=== PATIENT | female | born 1985 | race Two or more races ===

== ENCOUNTER 2020-07-14 10:16 | Emergency (ER) | payer OTHER ==
[~2020-07-14] VITALS: Ht 162.6 cm; Wt 63.5 kg
[2020-07-14 10:24] VITALS: BP 135/89
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
--- NOTE | 2020-07-14 10:45 | NUR ---
PT IN ROOM AWAKE AND ALERT, DEMONSTRATING INAPPROPRIATE BEHAVIOR, VULGAR LANGUAGE, VIOLENT MANNERISMS. SAFETY PRECAUTIONS, 1:1 OBSERVATIONS, 4-POINT RESTRAINTS REMAIN IN PLACE. RADIAL PULSES PRESENT BILAT, PEDAL PULSES PRESENT BILAT, PT DENIES TINGLING/NUMBESS, <3 CAP REFILL NOTED. WILL COTINUE TO ASSESS.
[2020-07-14] MEDS ORDERED: ZIPRASIDONE MESYLATE 20 MG/ML VIAL IM ONE (11:10)
[2020-07-14] MEDS ORDERED: WATER STERILE 10 ML MC ONE (11:19)
--- NOTE | 2020-07-14 12:01 | NUR ---
Note undone in EDM - 07/14/20 at 1222 by [facility] PT IN ROOM EYES CLOSED, VISIBLE ANIA RISE AND FALL. SAFETY PRECAUTIONS, 1:1 OBSERVATIONS, 4-POINT RESTRAINTS REMAIN IN PLACE. RADIAL PULSES PRESENT BILAT, PEDAL PULSES PRESENT BILAT, PT DENIES TINGLING/NUMBESS, <3 CAP REFILL NOTED. WILL COTINUE TO ASSESS.
--- NOTE | 2020-07-14 12:01 | NUR ---
PT IN ROOM EYES CLOSED, VISIBLE ANIA RISE AND FALL. SAFETY PRECAUTIONS, 1:1 OBSERVATIONS, 4-POINT RESTRAINTS REMAIN IN PLACE. RADIAL PULSES PRESENT BILAT, PEDAL PULSES PRESENT BILAT, <3 CAP REFILL NOTED. WILL COTINUE TO ASSESS.
--- NOTE | 2020-07-14 12:01 | NUR ---
PT SLEEPING, VISIBLE CHEST RISE AND FALL. 4-POINT RESTRAINTS D/C. 1:1 OBSERVATIONS AND SAFETY PRECAUTIONS REMAIN IN PLACE. WILL CONTINUE TO MONITOR.
--- NOTE | 2020-07-14 12:02 | NUR ---
LAB AT BEDSIDE
--- NOTE | 2020-07-14 12:10 | NUR ---
TAMIKO COVID SWAB OBTAINED AND GIVEN TO MALATHI FROM LAB
--- NOTE | 2020-07-14 12:15 | NUR ---
PT IN ROOM EYES CLOSED, VISIBLE CHEST RISE AND FALL. SAFETY PRECAUTIONS, 1:1 OBSERVATIONS. PT TAKEN OFF RESTRAINTS. WILL COTINUE TO ASSESS.
--- NOTE | 2020-07-14 12:15 | NUR ---
Note inez in EDM - 07/14/20 at 1344 by [facility] PT IN ROOM EYES CLOSED, VISIBLE ANIA RISE AND FALL. SAFETY PRECAUTIONS, 1:1 OBSERVATIONS, 4-POINT RESTRAINTS REMAIN IN PLACE. RADIAL PULSES PRESENT BILAT, PEDAL PULSES PRESENT BILAT, <3 CAP REFILL NOTED. WILL COTINUE TO ASSESS.
[2020-07-14 12:28] LABS: BASOPHILS % (AUTO) 0.7 % (0.0-2.0); EOSINOPHILS % (AUTO) 0.4 % (0.0-4.0); HEMATOCRIT 25.6 % (36-48); LYMPHOCYTES # (AUTO) 1.4 K/uL (2.5-16.5); LYMPHOCYTES % (AUTO) 21.8 % (20.5-51.1); MEAN CORPUSCULAR HEMOGLOBIN 21 pg (27-31); MEAN CORPUSCULAR HGB CONC 31 g/dL (33-37); MEAN CORPUSCULAR VOLUME 67.8 fL (80-94); MONOCYTES # (AUTO) 0.9 K/uL (0.8-1.0); NEUTROPHILS # (AUTO) 4.2 K/uL (1.8-7.7); NEUTROPHILS % (AUTO) 64.1 % (42.2-75.2); PLATELET COUNT (AUTO) 433 K/uL (140-450); RED BLOOD CELL COUNT(AUTO) 3.77 MIL/uL (4.20-5.40); RED CELL DISTRIBUTION WIDTH 17.4 % (11.6-13.7); WHITE BLOOD COUNT (AUTO) 6.6 K/uL (4.8-10.8)
--- NOTE | 2020-07-14 12:30 | NUR ---
NOVEL CORONAVIRUS SWAB OBTAINED AN DTAKEN TO LAB
--- NOTE | 2020-07-14 12:31 | NUR ---
Note inez in EDM - 07/14/20 at 1343 by [facility] PT IN ROOM EYES CLOSED, VISIBLE ANIA RISE AND FALL. SAFETY PRECAUTIONS, 1:1 OBSERVATIONS, 4-POINT RESTRAINTS REMAIN IN PLACE. RADIAL PULSES PRESENT BILAT, PEDAL PULSES PRESENT BILAT, <3 CAP REFILL NOTED. WILL COTINUE TO ASSESS.
[2020-07-14 12:40] LABS: ANION GAP 13.5 (8-16); CARBON DIOXIDE 24.8 mmol/L (21-32); CHLORIDE 104 mmol/L (98-107); CREATININE 0.9 mg/dL (0.6-1.3); GFR ARICAN-AMERICAN 93 mL/min (>90); GLUCOSE 99 mg/dL (74-106); POTASSIUM 3.3 mmol/L (3.5-5.1); SODIUM SERUM 139 mmol/L (136-145); UREA NITROGEN, BLOOD 12 mg/dL (7-18)
--- NOTE | 2020-07-14 12:45 | NUR ---
Note inez in EDM - 07/14/20 at 1343 by [facility] PT IN ROOM EYES CLOSED, VISIBLE ANIA RISE AND FALL. SAFETY PRECAUTIONS, 1:1 OBSERVATIONS, 4-POINT RESTRAINTS REMAIN IN PLACE. RADIAL PULSES PRESENT BILAT, PEDAL PULSES PRESENT BILAT, <3 CAP REFILL NOTED. WILL COTINUE TO ASSESS.
[2020-07-14 12:46] LABS: ALBUMIN 3.3 g/dL (3.4-5.0); ASPARTATE AMINOTRANSFERASE 22 U/L (15-37); TOTAL BILIRUBIN 0.7 mg/dL (0.0-1.0)
[2020-07-14 12:52] LABS: SALICYLATE < 2.8 mg/dL (2.8-20.0)
[2020-07-14 12:53] LABS: ACETAMINOPHEN < 0.5 ug/ml (10-30)
--- NOTE | 2020-07-14 13:15 | NUR ---
Note inez in EDM - 07/14/20 at 1343 by [facility] PT IN ROOM EYES CLOSED, VISIBLE ANIA RISE AND FALL. SAFETY PRECAUTIONS, 1:1 OBSERVATIONS, 4-POINT RESTRAINTS REMAIN IN PLACE. RADIAL PULSES PRESENT BILAT, PEDAL PULSES PRESENT BILAT, <3 CAP REFILL NOTED. WILL COTINUE TO ASSESS.
--- NOTE | 2020-07-14 16:00 | NUR ---
Bilateral lower leg restraints removed.
[2020-07-14 16:02] LABS: APPEARANCE,URINE SL CLOUDY (CLEAR); BILIRUBIN,URINE 1+ (NEGATIVE); BLOOD, URINE NEGATIVE (NEGATIVE); COLOR,URINE YELLOW (YELLOW); LEUKOCYTE ESTERASE ,URINE TRACE (NEGATIVE); NITRITE, URINE NEGATIVE (NEGATIVE); UGLUCOSE NEGATIVE (NEGATIVE)
[2020-07-14 16:13] LABS: BARBITURATE, URINE NEGATIVE ng/ml (NEG <=200); BENZODIAZEPINE, URINE NEGATIVE ng/mL (NEG <=200)
[2020-07-14 16:14] LABS: CANNABINOID, URINE POSITIVE ng/mL (NEG <=50); COCAINE, URINE NEGATIVE ng/mL (NEG <=300); OPIATE, URINE NEGATIVE ng/mL (NEG <=2000); PHENCYCLIDINE SCREEN,URINE NEGATIVE ng/mL (NEG <=25)
--- NOTE | 2020-07-14 16:26 | NUR ---
All restraints removed and pt continues to be quiet and cooperative.
[2020-07-14 16:37] LABS: RBC,URINE 0-5 /HPF (0-5)
[2020-07-14 16:38] LABS: WBC,URINE 16-25 (MOD) /HPF (0-5)
--- NOTE | 2020-07-14 17:39 | NUR ---
MD MERLIN (PSYCH) AT BEDSIDE
--- NOTE | 2020-07-14 17:56 | NUR ---
PER DR. NEUMANN, PT IS MEDICALLY CLEARED. OKAY TO BEGIN LOOKING FOR BED/PLACEMENT.
[2020-07-14] MEDS ORDERED: cephALEXin 500 MG CAP PO ONE (18:00)
--- NOTE | 2020-07-14 18:00 | NUR ---
Pt provided with dinner tray.
--- NOTE | 2020-07-14 18:18 | NUR ---
Packet received for placement
--- NOTE | 2020-07-14 18:27 | NUR ---
Packet fax to the following facilities [facility]
--- NOTE | 2020-07-14 19:17 | NUR ---
RECEIVED REPORT FROM FELIZ COTA FOR SHIFT CHANGE.
--- NOTE | 2020-07-14 19:21 | NUR ---
Pt report given to FELIZ MCKEON. Transfer of care at this time.
--- NOTE | 2020-07-14 21:20 | NUR ---
Patient appears to be resting comfortably in bed. VSS. Respirations even and unlabored.
--- NOTE | 2020-07-14 23:20 | NUR ---
Patient appears to be resting comfortably in bed. VSS. Respirations even and unlabored.
--- NOTE | 2020-07-15 00:51 | NUR ---
Received call from [facility]. Packet on file. Will review in the AM
--- NOTE | 2020-07-15 01:20 | NUR ---
Patient appears to be resting comfortably in bed. VSS. Respirations even and unlabored.
--- NOTE | 2020-07-15 03:20 | NUR ---
Patient appears to be resting comfortably in bed. VSS. Respirations even and unlabored.
--- NOTE | 2020-07-15 05:20 | NUR ---
Patient appears to be resting comfortably in bed. Respirations even and unlabored.
--- NOTE | 2020-07-15 05:30 | NUR ---
Patient appears to be resting comfortably in bed. Vital Signs within normal limits. Respirations even and unlabored.
--- NOTE | 2020-07-15 05:38 | NUR ---
There are still no bed availability at any of the designated facilities
--- NOTE | 2020-07-15 07:03 | NUR ---
Patient appears to be resting comfortably in bed. Vital Signs within normal limits. Respirations even and unlabored.
--- NOTE | 2020-07-15 07:10 | NUR ---
REPORT GIVEN TO FELIZ TORREZ FOR CHANGE OF SHIFT.
--- NOTE | 2020-07-15 07:11 | NUR ---
REPORT RECEIVED FROM FELIZ MCKEON. TRANSFER OF CARE AT THIS TIME.
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
--- NOTE | 2020-07-15 07:11 | NUR ---
Ifeanyi wiley in ED - 07/15/20 at 0712 by [facility] REPORT RECEIVED FROM FELIZ MCKEON. TRANSFER OF CARE AT THIS TIME.
--- NOTE | 2020-07-15 07:37 | NUR ---
PT AMBULATED TO WITH BEDSIDE SITTER, PT TOLD NOT TO LOCK THE DOOR BY SITTER. SITTER WAS ON THE OUTSIDE OF DOOR HOLDING DOOR OPEN. PT USED FORCE TO PULL DOOR CLOSED FROM THE INSIDE AND LOCKED DOOR. SECURITY IMMEDIATELY CALLED TO UNLOCK DOOR. SECUIRTY UNABLE TO OPEN DOOR, STATES "NO MERRITT UNLOCKS THIS DOOR." SITTER AND SECURITY STANDING OUTSIDE BATHROOM DOOR TRYING TO GET PT TO COME OUT.
--- NOTE | 2020-07-15 07:48 | NUR ---
RANDY SUCCESSFULLY UNLCOKED RR DOOR. PT IN BED. WITH SITTER AT BEDSIDE. PT MUMBLING TO HERSELF.
--- NOTE | 2020-07-15 08:10 | NUR ---
PT EATING BREAKFAST AT BEDSIDE.
--- NOTE | 2020-07-15 08:51 | NUR ---
PT CONTINUES TO MUMBLE TO HERSELF. AT BEDSIDE IN LOWEST POSITION X1 RAIL BEING MONITORED.
--- NOTE | 2020-07-15 09:12 | NUR ---
PT GOING WITH SITTER VIA WHEELCHAIR TO MED/SURG SHOWER PER ERMD ORDER.
--- NOTE | 2020-07-15 09:12 | NUR ---
Pt taken down to [facility] via w/c for a shower. Pt is calm and cooperative at this time. Pt accompanied by her VICTORIAN LITERATURE PROFESSOR sitter.
--- NOTE | 2020-07-15 10:10 | NUR ---
PT RETURNED FROM SHOWER WITH SITTER. BED LOCKED AND IN LOWEST POSITION. SIDE RAILS X1.
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
[2020-07-15] MEDS ORDERED: ZIPRASIDONE MESYLATE 20 MG/ML VIAL IM ONE (11:45)
--- NOTE | 2020-07-15 11:48 | NUR ---
PT GIVEN MEAL TRAY PRIOR TO [employer] [employer]
[2020-07-15] MEDS ORDERED: WATER STERILE 10 ML MC ONE (11:49)
--- NOTE | 2020-07-15 12:00 | NUR ---
SECURITY CALLED TO ER PRIOR TO ADMINISTRATION OF MEDICATIONS.
--- NOTE | 2020-07-15 12:03 | NUR ---
PT CONSENTED TO [facility].
--- NOTE | 2020-07-15 12:07 | NUR ---
PT CONTINUES TO BE VERBALLY AGRESSIVE AND THREATENING ER STAFF, SECURITY AND CHARGE NURSE AT [facility] ATTEMPTING TO DEESCALATE PT AT THIS TIME. SITTER AT BEDSIDE.
--- NOTE | 2020-07-15 12:07 | NUR ---
Note inez in ED - 07/15/20 at 1211 by [email or web address] PT CONTINUES TO BE VERBALLY AGRESSIVE AND THREATENING ER STAFF, SECURITY AND CHARGE NURSE AT [facility] ATTEMPTING TO DEESCALATING PT AT THIS TIME. SITTER AT BEDSIDE.
--- NOTE | 2020-07-15 12:15 | NUR ---
PT QUIET AND LYING DOWN WITH EYES CLOSED. PT NO LONGER AGGRESSIVE OR VERBALLY YELLING AT ANYONE AT THIS TIME. SITTER AT BEDSIDE. WARM BLANKET PROVIDED.
--- NOTE | 2020-07-15 13:59 | NUR ---
PT QUIET AND LYING DOWN WITH EYES CLOSED. PT NO LONGER AGGRESSIVE OR VERBALLY YELLING AT ANYONE AT THIS TIME. SITTER AT BEDSIDE. WARM BLANKET PROVIDED. EQUAL CHEST RISE AND FALL BREATH SOUNDS HEARD.
--- NOTE | 2020-07-15 17:17 | NUR ---
PT QUIET AND LYING DOWN WITH EYES CLOSED. PT NO LONGER AGGRESSIVE OR VERBALLY YELLING AT ANYONE AT THIS TIME. SITTER AT BEDSIDE. WARM BLANKET PROVIDED. EQUAL CHEST RISE AND FALL BREATH SOUNDS HEARD. PT IN LOWEST LOCKED BED X1 RAIL.
--- NOTE | 2020-07-15 17:51 | NUR ---
Patient up, ambulatory to restroom assisted by sitter.
--- NOTE | 2020-07-15 18:12 | NUR ---
Patient up and awake, eating dinner tray quietly.
--- NOTE | 2020-07-15 21:51 | NUR ---
Called the following facilities [facility]- no beds [facility] s/w [facility]-no beds-all full [facility]-no answer [facility] s/w Genny-packet fax for review [facility] Jennifer-no beds [facility] Oralia-packet fax for review
--- NOTE | 2020-07-15 22:00 | NUR ---
Patient appears to be resting comfortably in bed. Vital Signs within normal limits. Respirations even and unlabored. PT EATING SANDWICH, PUDDING AND JUICE. PT AMBULATED TO BATHROOM. PT IS NOW RESTING IN BED CALMLY.
--- NOTE | 2020-07-15 23:13 | NUR ---
Ifeanyi wiley in ED - 07/15/20 at 2314 by [facility] REPORT WAS CALLED JOSH PIPER TO [facility] UNIT RM [address] BEST[address] [phone].
--- NOTE | 2020-07-15 23:14 | NUR ---
REPORT WAS CALLED JOSH PIPER TO [facility] UNIT RM [address] BEST[address] [phone].
--- NOTE | 2020-07-15 23:40 | NUR ---
Patient to be transferred to [facility]. Is being transferred due to SUICIDAL IDEATION, HIGHER LEVEL OF CARE. Receiving facility has accepting physician and available space. ER physician has signed transfer form. Patient or responsible libertarian has agreed to transfer and signed form. Patient belongings inventoried and will be sent with patient. Copy of nursing notes, lab reports, EKG, Physicians Orders and X-rays to be sent with patient. Report called to JOSH PIPER at receiving facility. [facility] ambulance service has been called for transfer. ETA is 30MIN.
[2020-07-16 04:21] VITALS: BP 99/55
== END 2020-07-15 23:40 ==
LOC: MED 10:16
DX: R45.1 Restlessness and agitation (principal); Z20.822 Contact with and (suspected) exposure to COVID-19
CPT/HCPCS: 80053; 80305; 81001; 85025; 87426; 96372; 99285; G0480; G0482; J3486; U0003

== ENCOUNTER 2021-01-02 16:52 | Emergency (ER) | payer OTHER ==
[~2021-01-02] VITALS: Ht 167.6 cm; Wt 95.3 kg
--- NOTE | 2021-01-02 16:52 | NUR ---
AMBULATED TO ER BED 2 ACCOMPANIED BY [facility] OFFICER
[2021-01-02 16:55] VITALS: BP 114/52
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
--- NOTE | 2021-01-02 17:40 | NUR ---
NO NURSING INTERVENTIONS DONE, NO COMPLETE ASSESSMENT NEEDED.
--- NOTE | 2021-01-02 17:50 | NUR ---
PT REFUSED XR, DR. REYNOLDS MADE AWARE.
[2021-01-02 18:11] VITALS: BP 121/60
--- NOTE | 2021-01-02 18:11 | NUR ---
Patient does not wish to proceed with medical care recommended by DR. REYNOLDS. Patient given information related to possible complications, up to and including , which could occur as a result of leaving hospital at this time. Patient verbalizes understanding of risks involved leaving against medical advice. Patient has signed AMA form. ESCORTED BY [facility] PREBOOK.
== END 2021-01-02 18:11 | disposition left against medical advice (07) ==
LOC: MED 16:52
DX: S09.90XA Unspecified injury of head, initial encounter (principal); S29.9XXA Unspecified injury of thorax, initial encounter; S39.91XA Unspecified injury of abdomen, initial encounter; V89.2XXA Person injured in unspecified motor-vehicle accident, traffic, initial encounter; Y93.89 Activity, other specified; Y92.89 Other specified places as the place of occurrence of the external cause; Y99.8 Other external cause status
CPT/HCPCS: 99284